=== PATIENT | male | born 1960 | race American Indian/Alaskan Native ===

== ENCOUNTER 2017-12-25 17:11 | Emergency (ER) | payer MEDICAID ==
[2017-12-25 17:20] VITALS: BP 115/78
[2017-12-25] MEDS ORDERED: NORCO 7.5/325 PO ONE (18:49)
--- NOTE | 2017-12-25 18:49 | Emergency Department Report ---
Blank Doc - Documentation Documentation: Patient is a 57-year-old male past medical history diabetes blood sugar lately been running around 200 who is presenting with flulike symptoms symptoms for the past 2 days. Patient has had a cough cold congestion productive of clear sputum and body aches mild nausea and weakness chills Patient's O2 sat was normal lungs are mostly clear he does have occasional rhonchi that clears with deep breathing chest x-ray we ordered to rule out any atypical pneumonia patient will be given Vicodin for pain and fever control
--- NOTE | 2017-12-25 21:36 | XRay Report ---
FINAL REPORT EXAM: XR CHEST ROUTINE 2V HISTORY: cough TECHNIQUE: Two views of the chest Comparison: None FINDINGS: Normal heart size. There has been previous median sternotomy. There is 13 millimeter ovoid density in the right lung base projecting over the right anterior 6th rib on 1 of the images and separate from it on another image. This may represent the patient's nipple. There is a similar but slightly smaller nodular density in the left lung base measuring 13 millimeters. There are no effusions. There is mild bilateral scarring and mild bilateral infrahilar peribronchial thickening. IMPRESSION: Previous median sternotomy. Prominent nodular densities in both lung bases likely represent the patient's nipples. Recommend repeat with nipple markers. Mild peribronchial thickening especially in the infrahilar regions. Bronchitis may be present.
--- NOTE | 2017-12-25 22:05 | Emergency Department Report ---
Upper Respiratory HPI - HPI Chief Complaint: Fever Stated Complaint: FLU LIKE SYMPTOMS Time Seen by Provider: 12/25/17 18:41 Duration: 3 Days URI Symptoms: Rhinorrhea: Yes, Sore Throat: No, Ear Pain: No, Cough: Yes, Shortness of Breath: No, Sick Contacts: No, Unable to Take Fluids: No, Urine Output Abnormal: No, Listless Behavior: No Other History: This is a 57 y.o. male that presents with body aches, fever, and headache for 2 days. He is coughing up thick yellow mucus. He is having SOB with exertion. Used nebulizer once last night for cough and SOB. History of GA in September with stents placed. He quit smoking in September because this was the second GA. He has not taking anything for symptoms other than daily flonase , which he was already taking for allergies. Denies chest pain, wheezing, and nausea/vomiting. - Home Meds and Allergies Home Medications: Home Medications Medication Instructions Recorded Confirmed Last Taken Aspirin EC [Aspirin Enteric Coated 325 mg PO QDAY 10/17/15 10/17/15 1 Day Ago TAB] ~10/16/15 AtorvaSTATin [Lipitor] 40 mg PO HS 10/17/15 10/17/15 1 Day Ago ~10/16/15 Clopidogrel [Plavix] 75 mg PO QDAY 10/17/15 10/17/15 1 Day Ago ~10/16/15 Docusate Sodium [Colace CAP] 100 mg PO BID 10/17/15 10/17/15 1 Day Ago ~10/16/15 Famotidine [Pepcid] 20 mg PO DAILY 10/17/15 10/17/15 1 Day Ago ~10/16/15 Gabapentin [Gralise] 300 mg PO Q8H 10/17/15 10/17/15 1 Day Ago ~10/16/15 HYDROcodone/APAP 5-325 [Arrington 2 each PO Q6HR PRN 10/17/15 10/17/15 1 Day Ago 5-325 mg TAB] ~10/16/15 Insulin Glargine [Lantus VIAL] 25 unit SUB-Q QAM 10/17/15 10/17/15 1 Day Ago ~10/16/15 Previous Rx's Medication Instructions Recorded Last Taken Type AtorvaSTATin [Lipitor] 40 mg PO QHS tablet 12/11/15 Unknown Rx Clopidogrel [Plavix] 75 mg PO DAILY tablet 10/19/15 Unknown Rx Furosemide [Lasix TAB] 20 mg PO QDAY #30 10/19/15 1 Day Ago Rx ~10/16/15 K-Dur 10 meq PO DAILY #30 10/19/15 1 Day Ago Rx ~10/16/15 Levofloxacin [Levaquin TAB] 750 mg PO Q24HR #7 tablet 10/19/15 Unknown Rx Metoprolol [Lopressor TAB] 12.5 mg PO Q12HR #60 10/19/15 1 Day Ago Rx ~10/16/15 ALBUTEROL Inhaler [ProAir HFA 1 puff IH Q4-6H PRN #1 inha 12/25/17 Unknown Rx Inhaler] Benzonatate 200 mg PO TID PRN #30 capsule 12/25/17 Unknown Rx Doxycycline Monohydrate 100 mg PO BID 7 Days #14 tablet 12/25/17 Unknown Rx Allergies/Adverse Reactions: Allergies Allergy/AdvReac Type Severity Reaction Status Date / Time No Known Allergies Allergy Verified 12/25/17 17:16 ED Review of Systems ROS: Stated complaint: FLU LIKE SYMPTOMS Other details as noted in HPI Constitutional: chills, fever, malaise. denies: weakness ENT: congestion. denies: ear pain, throat pain Respiratory: cough, SOB with exertion. denies: shortness of breath, SOB at rest , stridor, wheezing Cardiovascular: denies: chest pain, palpitations Gastrointestinal: denies: abdominal pain, nausea, diarrhea Musculoskeletal: myalgia (generalized body aches) Neurological: headache. denies: weakness, paresthesias ED Past Medical Hx - Past Medical History Hx Hypertension: Yes Hx Heart Attack/AMI: Yes (2014) Hx Congestive Heart Failure: No Hx Diabetes: Yes Hx Arthritis: Yes Hx Asthma: No Hx COPD: Yes Hx HIV: No - Surgical History Hx Coronary Stent: Yes Additional Surgical History: carpal tunnel, CABG 10/08, bypass - Social History Smoking Status: Never Smoker Substance Use Type: None - Medications Home Medications: Home Medications Medication Instructions Recorded Confirmed Last Taken Type Aspirin EC [Aspirin Enteric Coated 325 mg PO QDAY 10/17/15 10/17/15 1 Day Ago History TAB] ~10/16/15 AtorvaSTATin [Lipitor] 40 mg PO HS 10/17/15 10/17/15 1 Day Ago History ~10/16/15 Clopidogrel [Plavix] 75 mg PO QDAY 10/17/15 10/17/15 1 Day Ago History ~10/16/15 Docusate Sodium [Colace CAP] 100 mg PO BID 10/17/15 10/17/15 1 Day Ago History ~10/16/15 Famotidine [Pepcid] 20 mg PO DAILY 10/17/15 10/17/15 1 Day Ago History ~10/16/15 Gabapentin [Gralise] 300 mg PO Q8H 10/17/15 10/17/15 1 Day Ago History ~10/16/15 HYDROcodone/APAP 5-325 [Arrington 2 each PO Q6HR PRN 10/17/15 10/17/15 1 Day Ago History 5-325 mg TAB] ~10/16/15 Insulin Glargine [Lantus VIAL] 25 unit SUB-Q QAM 10/17/15 10/17/15 1 Day Ago History ~10/16/15 AtorvaSTATin [Lipitor] 40 mg PO QHS tablet 10/19/15 Unknown Rx Clopidogrel [Plavix] 75 mg PO DAILY tablet 10/19/15 Unknown Rx Furosemide [Lasix TAB] 20 mg PO QDAY #30 10/19/15 10/17/15 1 Day Ago Rx ~10/16/15 K-Dur 10 meq PO DAILY #30 10/19/15 10/17/15 1 Day Ago Rx ~10/16/15 Levofloxacin [Levaquin TAB] 750 mg PO Q24HR #7 tablet 10/19/15 Unknown Rx Metoprolol [Lopressor TAB] 12.5 mg PO Q12HR #60 10/19/15 10/17/15 1 Day Ago Rx ~10/16/15 ALBUTEROL Inhaler [ProAir HFA 1 puff IH Q4-6H PRN #1 inha 12/25/17 Unknown Rx Inhaler] Benzonatate 200 mg PO TID PRN #30 capsule 12/25/17 Unknown Rx Doxycycline Monohydrate 100 mg PO BID 7 Days #14 tablet 12/25/17 Unknown Rx ED Bronchiolitis Physical Exam - Exam General: Vital signs noted. No distress. Alert and acting appropriately. HEENT: Yes Pharyngeal Erythema, Yes Rhinorrhea, No Conjuctival Injection, No Dry Mucous Membranes Ear: Neither TM Bulge, Neither TM Erythema, Neither EAC Discharge Neck: No Adenopathy, No Rigidity Lungs: Yes Good Air Exchange, Yes Cough, No Clear Lung Sounds, No Wheezes, No Stridor, No Nasal Flaring, No Retractions, No Use of Accessory Muscles Heart: Yes Regular, No Murmur Abdomen: Yes Normal Bowel Sounds, No Tenderness, No Peritoneal Signs Skin: No Rash, No Eczema Neurologic: Alert and oriented, no deficits. Musculoskeletal: Unremarkable. ED Bronchiolitis Tests - Testing Testing: CXR: Abnormal/Positive (bronchitis) ED Course Vital Signs 12/25/17 12/25/17 17:17 18:54 Temperature 100.4 F H Pulse Rate 90 Respiratory 20 16 Rate Blood Pressure 115/78 O2 Sat by Pulse 97 Oximetry ED Medical Decision Making - Radiology Data Radiology results: report reviewed IMPRESSION: Previous median sternotomy. Prominent nodular densities in both lung bases likely represent the patient's nipples. Recommend repeat with nipple markers. Mild peribronchial thickening especially in the infrahilar regions. Bronchitis may be present. - Medical Decision Making This is a 57 y.o. male that presents with fever, cough, body aches, and headaches for 2 days. He has not taken anything OTC for symptom relief. CXR obtained and read by radiologist. Impression mild peribronchial thickening especially in the infrahilar regions. Given solumedrol 125 mg IM once in ER. Treat outpatient with supportive care, doxycycline, albuterol inhaler, and benzonatate. Discussed plan of care with patient and agreed with plan. Discharged home in stable condition. F/U with PCP in 2-3 days. Critical care attestation.: If time is entered above; I have spent that time in minutes in the direct care of this critically ill patient, excluding procedure time. ED Disposition Clinical Impression: Bronchitis Disposition: DC-01 TO HOME OR SELFCARE Is pt being admited?: No Does the pt Need Aspirin: No Condition: Stable Instructions: Acute Bronchitis (ED) Additional Instructions: Cough may last for 4-6 weeks post infection. Taking ibuprofen or tylenol for fever. Follow up with [facility] if symptoms are not improving. Return to ER if fever, shortness of breath, chest pain, or wheezing. Prescriptions: ALBUTEROL Inhaler [ProAir HFA Inhaler] 1 puff IH Q4-6H PRN #1 inha PRN Reason: Shortness Of Breath Benzonatate 200 mg PO TID PRN #30 capsule PRN Reason: Cough Doxycycline Monohydrate 100 mg PO BID 7 Days #14 tablet Referrals: [facility] [Outside] - 3-5 Days [facility] [Outside] - 3-5 Days [facility] [Outside] - 3-5 Days Time of Disposition: 22:40 Print Language: [email or web address]
== END 2017-12-25 22:54 | disposition home or self-care (01) ==
LOC: ED 17:11
DX: J40 Bronchitis, not specified as acute or chronic (principal); I10 Essential (primary) hypertension; E11.9 Type 2 diabetes mellitus without complications; M19.90 Unspecified osteoarthritis, unspecified site; I25.2 Old myocardial infarction; J44.9 Chronic obstructive pulmonary disease, unspecified; Z79.4 Long term (current) use of insulin
CPT/HCPCS: 71046; 96372; 99283; J2930